=== PATIENT | male | born 1945 | race Caucasian/White ===

== ENCOUNTER 2018-10-20 17:06 | Emergency (ER) | payer MEDICARE, OTHER ==
[2018-10-20] MEDS ORDERED: Bacitracin Zinc 1 Packet ONE (18:14)
[2018-10-20] MEDS ORDERED: Bacitracin Zinc Ointment 30 gm TUBE ONE (18:14)
== END 2018-10-20 18:26 | disposition home or self-care (01) ==
LOC: SCSER 17:06
DX: S61.412A Laceration without foreign body of left hand, initial encounter (principal); I10 Essential (primary) hypertension; Z79.899 Other long term (current) drug therapy; W23.0XXA Caught, crushed, jammed, or pinched between moving objects, initial encounter
CPT/HCPCS: 12001

== ENCOUNTER 2021-10-03 07:30 | Outpatient (CLI) | payer MEDICARE, OTHER ==
[2021-10-03 09:21] LABS: #Basophils 0.1 10x3/uL (0.0-0.2); #Eosinphils 0.6 10x3/uL (0.0-0.5); #Monocytes 1.2 10x3/uL (0.0-1.1); #Neutrophils 7.3 10x3/uL (1.5-8.4); %Basophils 0.6 % (0.0-2.0); %Eosinophils 5.7 % (0.0-6.0); %Lymphocytes 11.4 % (18.0-47.0); %Monocytes 11.5 % (0.0-10.0); %Neutrophils 70.5 % (40.0-75.0); Hemoglobin 13.9 g/dL (13.5-17.5); Mean Corpuscular HGB CONC 34.1 g/dL (32.0-36.0); Mean Corpuscular Hemoglobin 30.2 pg (27.0-33.0); Mean Corpuscular Volume 88.7 fl (81.2-95.1); Mean Platelet Volume 9.8 fl (7.4-10.4); Platelet Count 249 10x3/uL (150-450); RBC Distribution Width 11.4 % (11.5-14.5); White Blood Cell (WBC) Count 10.3 10x3/uL (3.5-10.5)
[2021-10-03 09:28] LABS: ALT (SGPT) 21 U/L (8-55); AST (SGOT) 18 U/L (5-34); Albumin 3.9 g/dL (3.4-4.8); Alkaline Phosphatase 67 U/L (40-110); Anion Gap 13 mmol/L (10-20); BUN (Urea Nitrogen) 15 mg/dL (8.4-25.7); Bilirubin, Total 0.5 mg/dL (0.2-1.2); Calc. Creatinine Clearance 0 mL/min (70-130); Calcium 8.8 mg/dL (7.8-10.44); Carbon Dioxide 25 mmol/L (23-31); Chloride 103 mmol/L (98-107); Globulin 2.8 g/dL (2.4-3.5); Glucose 258 mg/dL (83-110); Potassium 3.9 mmol/L (3.5-5.1); Protein, Total 6.7 g/dL (5.8-8.1); Sodium 137 mmol/L (136-145)
[2021-10-03 22:40] LABS: SARS-CoV-2 PCR by NAA Not Detected (NotDetected)
== END 2021-10-03 07:31 | disposition home or self-care (01) ==
LOC: LABBT 07:30
PROVIDERS: ATTEND Surgery
DX: Z01.818 Encounter for other preprocedural examination (principal); Z20.822 Contact with and (suspected) exposure to COVID-19
CPT/HCPCS: 80053; 85025; 93005; U0003; U0005; 93010

== ENCOUNTER 2021-10-08 08:46 | Day surgery (SDC) | payer MEDICARE, OTHER ==
[2021-10-02 11:46] VITALS: BMI 21.7
[2021-10-08] MEDS ORDERED: ceFAZolin 2 GM/DEX 5% 100 ML BAG ONE (10:36)
[2021-10-08] MEDS ORDERED: EPINEPHrine 1 MG/ML AMP ONE (11:58)
[2021-10-08] MEDS ORDERED: Bupivacaine 0.25% 10 ML VIAL ONE (11:58)
[2021-10-08] MEDS ORDERED: PROPOFOL 200 MG/20 ML VIAL ONE (12:17)
[2021-10-08] MEDS ORDERED: Dexamethasone 20 MG/5 ML VIAL ONE (12:17)
[2021-10-08] MEDS ORDERED: Lidocaine 1% PF 5 ML VIAL ONE (12:17)
[2021-10-08] MEDS ORDERED: Ondansetron PF 4 MG/2 ML Vial ONE (12:17)
[2021-10-08] MEDS ORDERED: Fentanyl 100 MCG/2 ML VIAL ONE ×3 (12:56→13:36)
== END 2021-10-08 15:00 | disposition home or self-care (01) ==
LOC: SDC 08:46
PROVIDERS: ATTEND Surgery
PROC: 0YU50JZ Supplement Right Inguinal Region with Synthetic Substitute, Open Approach (ICD-10-PCS; principal; 2021-10-08)
DX: K40.90 Unilateral inguinal hernia, without obstruction or gangrene, not specified as recurrent (principal); I10 Essential (primary) hypertension; Z79.899 Other long term (current) drug therapy; Z88.5 Allergy status to narcotic agent
CPT/HCPCS: C1781; J0171; J1100; J2405; J2704; J3010; S0020

== ENCOUNTER 2023-08-24 16:55 | Emergency (ER) | payer MEDICARE, OTHER ==
[2023-08-24 18:07] LABS: #Basophils 0.1 thou/uL (0.0-0.2); #Eosinphils 0.6 thou/uL (0.0-0.7); #Monocytes 1.1 thou/uL (0.11-0.59); #Neutrophils 5.4 thou/uL (1.40-6.50); %Basophils 0.8 % (0.0-1.0); %Eosinophils 6.2 % (0.0-10.0); %Lymphocytes 20.9 % (21.0-51.0); %Monocytes 11.8 % (0.0-10.0); %Neutrophils 60.2 % (42.0-75.0); Hemoglobin 15.2 g/dL (14.0-18.0); Mean Corpuscular HGB CONC 34.5 g/dL (32.0-36.0); Mean Corpuscular Hemoglobin 30.8 pg (27.0-31.0); Mean Corpuscular Volume 89.2 fl (78.0-98.0); Mean Platelet Volume 9.9 fL (7.4-10.4); Platelet Count 248 10x3/uL (130-400); RBC Distribution Width 11.7 % (11.5-14.5); Red Blood Cell (RBC) Count 4.93 mill/uL (4.70-6.10); White Blood Cell (WBC) Count 8.9 10x3/uL (4.8-10.8)
[2023-08-24 18:18] LABS: Troponin I Less than 0.010 ng/mL (< 0.028)
[2023-08-24 18:38] LABS: ALT (SGPT) 18 U/L (8-55); AST (SGOT) 21 U/L (5-34); Albumin 4.3 g/dL (3.4-4.8); Alkaline Phosphatase 76 U/L (40-110); Anion Gap 16 mmol/L (10-20); BUN (Urea Nitrogen) 17 mg/dL (8.4-25.7); Bilirubin, Total 0.4 mg/dL (0.2-1.2); Calc. Creatinine Clearance 0 mL/min (70-130); Calcium 9.3 mg/dL (7.8-10.44); Carbon Dioxide 22 mmol/L (23-31); Chloride 105 mmol/L (98-107); Estimated GFR 73; Globulin 2.7 g/dL (2.4-3.5); Glucose 107 mg/dL (83-110); Lipase 12 U/L (8-78); Potassium 3.7 mmol/L (3.5-5.1); Sodium 139 mmol/L (136-145)
== END 2023-08-24 21:18 | disposition short-term general hospital (02) ==
LOC: ERS 16:55
DX: R07.9 Chest pain, unspecified (principal); R00.2 Palpitations; I10 Essential (primary) hypertension; I48.91 Unspecified atrial fibrillation; K21.9 Gastro-esophageal reflux disease without esophagitis; Z79.899 Other long term (current) drug therapy
CPT/HCPCS: 36416; 71045; 80053; 83690; 83735; 84484; 85025; 93005